=== PATIENT | female | born 1950 | race Caucasian/White ===

== ENCOUNTER 2023-02-01 09:42 | Emergency (ER) | payer MEDICARE, OTHER ==
[2023-02-01 10:28] VITALS: BP 150/70; PULSE 98
== END 2023-02-01 11:11 | disposition home or self-care (01) ==
LOC: JP.ED 09:42
DX: S80.862A Insect bite (nonvenomous), left lower leg, initial encounter (principal); L08.9 Local infection of the skin and subcutaneous tissue, unspecified; E78.00 Pure hypercholesterolemia, unspecified; I10 Essential (primary) hypertension; E03.9 Hypothyroidism, unspecified; Z79.899 Other long term (current) drug therapy; W57.XXXA Bitten or stung by nonvenomous insect and other nonvenomous arthropods, initial encounter
CPT/HCPCS: 99281

== ENCOUNTER 2023-03-26 13:43 | Emergency (ER) | payer MEDICARE, OTHER ==
[2023-03-26] MEDS ORDERED: Sodium Chloride 0.9% 10 ML Syringe FLUSH PRN (14:01)
[2023-03-26 14:04] VITALS: BP 192/80; PULSE 120
[2023-03-26 14:32] LABS: BASOPHILS PERCENT AUTO 0.3 % (0.1-1.3); EOSINOPHILS ABSOLUTE AUTO 0.09 K/uL (0.00-0.40); EOSINOPHILS PERCENT AUTO 1.2 % (0.0-5.4); HEMATOCRIT 36.6 % (34.3-46.0); HEMOGLOBIN 12.3 g/dL (11.2-15.5); IMMATURE GRAN PERCENT AUTO 0.3 % (0.0-0.7); LYMPHOCYTES ABSOLUTE AUTO 1.32 K/uL (0.8-3.3); LYMPHOCYTES PERCENT AUTO 18.1 % (11.4-47.7); MEAN CORPUSCULAR HEMOGLOBIN 30.1 pg (31.6-35.5); MEAN CORPUSCULAR HGB CONC 33.6 g/dL (31.6-35.5); MEAN CORPUSCULAR VOLUME 89.5 fL (81.4-99.0); MONOCYTES ABSOLUTE AUTO 0.56 K/uL (0.20-0.90); MONOCYTES PERCENT AUTO 7.7 % (3.3-12.6); NEUTROPHILS ABSOLUTE AUTO 5.29 K/uL (1.0-7.6); NEUTROPHILS PERCENT AUTO 72.4 % (40.0-78.1); PLATELET COUNT,PLT 191 K/uL (130-375); RED BLOOD CELL COUNT 4.09 M/uL (3.77-5.24); WHITE BLOOD CELL COUNT,WBC 7.3 K/uL (3.2-11.0)
[2023-03-26 14:36] LABS: BASOPHILS ABSOLUTE AUTO 0.02 K/uL (0.00-0.10); IMMATURE GRAN ABSOLUTE AUTO 0.02 K/uL (0.00-0.23)
[2023-03-26 14:49] LABS: ANION GAP 11.2 mmol/L (5.0-14.0); C-REACTIVE PROTEIN 0.39 mg/dL (0.0-0.3); CALCIUM 8.8 mg/dL (8.5-10.1); CREATININE 1.3 mg/dL (0.6-1.0); EST CRCL DRUG DOSING (CG) 30.38 mL/min; POTASSIUM,K 3.2 mmol/L (3.6-5.2)
[2023-03-26 14:52] LABS: PTT,PARTIAL THROMBOPLSTIN TIME 23.7 sec (21.8-27.3)
[2023-03-26] MEDS ORDERED: Potassium Chloride 20 MEQ Tab.ER PO ONE (14:56)
[2023-03-26] MEDS ORDERED: Sodium Chloride 0.9% 1,000 ML IV ONE (14:56)
== END 2023-03-26 16:51 | disposition home or self-care (01) ==
LOC: JP.ED 13:43
DX: K92.1 Melena (principal); E86.0 Dehydration; E87.6 Hypokalemia; E78.00 Pure hypercholesterolemia, unspecified; I10 Essential (primary) hypertension; E03.9 Hypothyroidism, unspecified; Z87.891 Personal history of nicotine dependence; Z79.899 Other long term (current) drug therapy
CPT/HCPCS: 36415; 80048; 82272; 85025; 85610; 85730; 86140; 86850; 86900; 86901; 96360; 99283-25; A9270-GY; J7030

== ENCOUNTER 2023-04-07 07:51 | Day surgery (SDC) | payer MEDICARE, OTHER ==
[~2023-04-07 07:51] MED LIST: Propofol 200 MG/20 ML SDV ONE; fentaNYL 100 MCG/2 ML SDV ONE
[2023-04-07] MEDS ORDERED: Lactated Ringers 1,000 ML IV SCH (08:30)
[2023-04-07] MEDS ORDERED: Propofol 200 MG/20 ML SDV ONE (10:50)
[2023-04-07 12:09] VITALS: BP 151/57; PULSE 57
== END 2023-04-07 12:15 | disposition home or self-care (01) ==
LOC: JP.SDS 07:51
PROVIDERS: ATTEND Student in an Organized Health Care Education/Training Program
DX: K57.31 Diverticulosis of large intestine without perforation or abscess with bleeding (principal); K52.9 Noninfective gastroenteritis and colitis, unspecified; I10 Essential (primary) hypertension; G47.33 Obstructive sleep apnea (adult) (pediatric); R91.8 Other nonspecific abnormal finding of lung field; E78.00 Pure hypercholesterolemia, unspecified; E03.9 Hypothyroidism, unspecified
CPT/HCPCS: 45380; 88305; J2704; J3010; J7120